=== PATIENT | male | born 1950 | race Caucasian/White ===

== ENCOUNTER 2018-10-31 20:24 | Emergency (ER) | payer OTHER ==
[2018-10-31 21:35] LABS: Urine Bilirubin NEGATIVE (NEG); Urine Color RED; Urine Glucose NEGATIVE (NEG); Urine Protein 3+ (NEG); Urine Specific Gravity 1.015 (1.005-1.030); Urine Urobilinogen 0.2 mg/dL (0.2-1.0); Urine pH 6.5 (5.0-7.0)
[2018-10-31 21:37] LABS: Urine Appearance TURBID; Urine Blood 4+ (NEG)
[2018-10-31 21:38] LABS: Urine Microscopic Reflex ORDER UMIC
[2018-10-31 21:45] LABS: Urine Bacteria <20 /HPF (NONE SEEN); Urine Culture Reflex Order REFLEXED; Urine RBC >50 /HPF (NONE SEEN)
[2018-10-31 22:48] LABS: Absolute Lymphocytes (CBC) 0.8 K/uL (0.7-4.9); Absolute Monocytes 0.8 K/uL (0.1-1.3); Absolute Neutrophil 9.8 K/uL (1.8-8.0); Basophils % 0.3 % (0-1.3); Eosinophils % 0.5 % (0-4.4); Hematocrit 37.1 % (39.6-49.0); Lymphocytes % 7.2 % (15.3-44.8); MCH 32.4 pg (27.0-35.0); MCV 95.7 fL (80-100); MPV 7.9 fL (7.6-11.3); RBC Red Blood Cell Count 3.88 M/uL (4.33-5.43)
[2018-10-31 23:25] LABS: BUN Blood Urea Nitrogen 14 mg/dL (7-18); Bicarbonate 27 mmol/L (21-32); Glucose Level 108 mg/dL (74-106); Potassium 3.7 mmol/L (3.5-5.1); Sodium Level 129 mmol/L (136-145)
--- NOTE | 2018-11-01 00:19 | ER ---
Nurse's Notes [facility] Name: Bennie Thompson Age: 67 yrs Sex: Male : 1950 Arrival Date: 10/31/2018 Time: 20:25 Bed 14 Private MD: Diagnosis: Hematuria, unspecified;Cystitis, unspecified Presentation: 10/31 21:12 Presenting complaint: Patient states: burning with urination and blood in urine since aa1 this afternoon. Denies fever. Transition of care: patient was not received from another setting of care. Onset of symptoms was October 31, 2018. Risk Assessment: Do you want to hurt yourself or someone else? Patient reports no desire to harm self or others. Initial Sepsis Screen: Does the patient meet any 2 criteria? No. Patient's initial sepsis screen is negative. Does the patient have a suspected source of infection? Yes: Dysuria/Frequency/Urgency/UTI. Care prior to arrival: None. 21:12 Method Of Arrival: Ambulatory aa1 21:12 Acuity: MISTY 3 aa1 Triage Assessment: 21:13 General: Appears in no apparent distress. comfortable, Behavior is calm, cooperative, aa1 appropriate for age. Historical: - Allergies: 21:13 No Known Allergies; aa1 - Home Meds: 21:13 Metformin Oral [Active]; Lisinopril Oral [Active]; aa1 - PMHx: 21:13 Diabetes - NIDDM; aa1 - PSHx: 21:13 None; aa1 - Immunization history:: Flu vaccine is up to date. - Social history:: Smoking status: Patient/guardian denies using tobacco. - Ebola Screening: : No symptoms or risks identified at this time. - Family history:: not pertinent. - Hospitalizations: : No recent hospitalization is reported. Screenin:40 Abuse screen: Denies threats or abuse. Nutritional screening: No deficits noted. jb4 Tuberculosis screening: No symptoms or risk factors identified. Fall Risk None identified. Assessment: 22:30 Reassessment: Pt is in CT. jb4 22:40 General: Appears in no apparent distress. comfortable, Behavior is calm, cooperative, jb4 appropriate for age. Pain: Denies pain. Neuro: Level of Consciousness is awake, alert, obeys commands, Oriented to person, place, time, situation. Cardiovascular: Patient's skin is warm and dry. Respiratory: Airway is patent Respiratory effort is even, unlabored, Respiratory pattern is regular, symmetrical. GI: No signs and/or symptoms were reported involving the gastrointestinal system. : Reports pain with urination, hematuria. EENT: No signs and/or symptoms were reported regarding the EENT system. Derm: Skin is intact, Skin is pink, warm \T\ dry. 22:40 Musculoskeletal: Circulation, motion, and sensation intact. jb4 11/01 00:00 Reassessment: Patient appears in no apparent distress at this time. Patient and/or jb4 family updated on plan of care and expected duration. Pain level reassessed. Patient is alert, oriented x 3, equal unlabored respirations, skin warm/dry/pink. 01:00 Reassessment: Patient appears in no apparent distress at this time. Patient and/or jb4 family updated on plan of care and expected duration. Pain level reassessed. Patient is alert, oriented x 3, equal unlabored respirations, skin warm/dry/pink. 02:00 Reassessment: Patient appears in no apparent distress at this time. Patient and/or jb4 family updated on plan of care and expected duration. Pain level reassessed. Patient is alert, oriented x 3, equal unlabored respirations, skin warm/dry/pink. Vital Signs: 10/31 21:13 BP 149 / 71; Pulse 69; Resp 18; Temp 97.9; Pulse Ox 100% on R/A; Weight 74.84 kg; aa1 Height 6 ft. 2 in. (187.96 cm); Pain 0/10; 22:45 BP 131 / 65; Pulse 65; Resp 16; Pulse Ox 100% on R/A; jb4 23:45 BP 120 / 67; Pulse 72; Resp 16; Pulse Ox 100% ; jb4 11/01 00:45 BP 123 / 66; Pulse 70; Resp 16; Pulse Ox 100% on R/A; jb4 01:30 BP 129 / 61; Pulse 71; Resp 16; Pulse Ox 98% on R/A; jb4 10/31 21:13 Body Mass Index 21.18 (74.84 kg, 187.96 cm) aa1 ED Course: 10/31 20:25 Patient arrived in ED. ds1 21:12 Triage completed. aa1 21:13 Arm band placed on left wrist. Patient placed in waiting room, Patient notified of wait aa1 time. Urine obtained. 22:06 Trev Ahmadi MD is Attending Physician. rn 22:22 Qasim Hays, RN is Primary Nurse. jb4 22:32 Radiology exam delayed due to pt is getting blood work done at this time. vm2 22:35 Patient moved to [place] via wheelchair. vm2 22:36 Initial lab(s) drawn, by me, sent to lab. Inserted saline lock: 18 gauge in right mb4 antecubital area, using aseptic technique. Blood collected. 22:42 CT completed. Patient tolerated procedure well. Patient moved back from [place]. ut 22:45 Patient has correct armband on for positive identification. Placed in gown. Bed in low jb4 position. Call light in reach. Side rails up X 1. Pulse ox on. NIBP on. 22:48 CT Stone Protocol In Process Unspecified. EDMS 12 01:00 Warm blanket given. Pillow given. jb4 02:17 No provider procedures requiring assistance completed. IV discontinued, intact, jb4 bleeding controlled. Administered Medications: 00:30 Drug: Cipro 400 mg Volume: 200 ml; Route: IVPB; Infused Over: 60 mins; Site: right jb4 antecubital; 01:30 Follow up: Response: No adverse reaction; IV Status: Completed infusion jb4 Outcome: 00:18 Discharge ordered by . rn 02:17 Discharged to home ambulatory, with significant other. jb4 02:17 Condition: stable 02:17 Discharge instructions given to patient, rehab services aide, Instructed on discharge instructions, follow up and referral plans. medication usage, Demonstrated understanding of instructions, follow-up care, medications, Prescriptions given X 1. 02:17 Patient left the ED. jb4 Signatures: Dispatcher [employer] EDPR Alina Machado, RN RN aa1 Cielo Solo ds1 Trev Ahmadi MD MD rn Bryson, James, RN RN jb4 Rafa Petit [facility] Keeley Delgadillo [facility] Corrections: (The following items were deleted from the chart) 10/31 22:32 22:23 Patient moved to [place] vm2 vm2
--- NOTE | 2018-11-01 00:19 | EDPHYS ---
Physician Documentation [facility] Name: Bennie Thompson Age: 67 yrs Sex: Male : 1950 Arrival Date: 10/31/2018 Time: 20:25 Bed 14 Private MD: ED Physician Trev Ahmadi HPI: 10/31 23:25 This 67 yrs old Male presents to ER via Ambulatory with complaints of rn hematuria. 23:25 The patient presents with urinary symptoms. Onset: The symptoms/episode began/occurred rn today. Modifying factors: The symptoms are alleviated by nothing, the symptoms are aggravated by urinating. Severity of symptoms: At their worst the symptoms were mild, in the emergency department the symptoms are unchanged. The patient has not experienced similar symptoms in the past. Reports hematuria, + increased frequency, no pain, no vomiting, has had a urine infection before, + clots, no fever. Feels like emptying. . Historical: - Allergies: 21:13 No Known Allergies; aa1 - Home Meds: 21:13 Metformin Oral [Active]; Lisinopril Oral [Active]; aa1 - PMHx: 21:13 Diabetes - NIDDM; aa1 - PSHx: 21:13 None; aa1 - Immunization history:: Flu vaccine is up to date. - Social history:: Smoking status: Patient/guardian denies using tobacco. - Ebola Screening: : No symptoms or risks identified at this time. - Family history:: not pertinent. - Hospitalizations: : No recent hospitalization is reported. ROS: 23:25 Constitutional: Negative for fever, chills, and weight loss, Eyes: Negative for injury, rn pain, redness, and discharge, Neck: Negative for injury, pain, and swelling, Cardiovascular: Negative for chest pain, palpitations, and edema, Respiratory: Negative for shortness of breath, cough, wheezing, and pleuritic chest pain, Abdomen/GI: Negative for abdominal pain, nausea, vomiting, diarrhea, and constipation, : + hematuria MS/Extremity: Negative for injury and deformity, Skin: Negative for injury, rash, and discoloration, Neuro: Negative for headache, weakness, numbness, tingling, and seizure. Exam: 23:25 Constitutional: This is a well developed, well nourished patient who is awake, alert, rn and in no acute distress. Eyes: Pupils equal round and reactive to light, extra-ocular motions intact ENT: MMM Abdomen/GI: soft, non-tender Back: No spinal tenderness. No costovertebral tenderness. Full range of motion. Skin: Warm, dry with normal turgor. Normal color with no rashes, no lesions, and no evidence of cellulitis. MS/ Extremity: Pulses equal, no cyanosis. Neurovascular intact. Full, normal range of motion. Equal circumference. Neuro: Awake and alert, GCS 15, oriented to person, place, time, and situation. Cranial nerves II-XII grossly intact. Motor strength 5/5 in all extremities. Sensory grossly intact. Cerebellar exam normal. Normal gait. Vital Signs: 21:13 BP 149 / 71; Pulse 69; Resp 18; Temp 97.9; Pulse Ox 100% on R/A; Weight 74.84 kg; aa1 Height 6 ft. 2 in. (187.96 cm); Pain 0/10; 22:45 BP 131 / 65; Pulse 65; Resp 16; Pulse Ox 100% on R/A; jb4 23:45 BP 120 / 67; Pulse 72; Resp 16; Pulse Ox 100% ; jb4 11/01 00:45 BP 123 / 66; Pulse 70; Resp 16; Pulse Ox 100% on R/A; jb4 01:30 BP 129 / 61; Pulse 71; Resp 16; Pulse Ox 98% on R/A; jb4 10/31 21:13 Body Mass Index 21.18 (74.84 kg, 187.96 cm) aa1 MDM: 10/31 22:06 Patient medically screened. rn 11/01 00:16 Differential diagnosis: UTI, prostatitis, urethritis. Data reviewed: vital signs, rn nurses notes, lab test result(s), radiologic studies, CT scan, and as a result, I will discharge patient. Counseling: I had a detailed discussion with the patient and/or guardian regarding: the historical points, exam findings, and any diagnostic results supporting the discharge/admit diagnosis, lab results, radiology results, the need for outpatient follow up, to return to the emergency department if symptoms worsen or persist or if there are any questions or concerns that arise at home. Response to treatment: the patient's symptoms have mildly improved after treatment, and as a result, I will discharge patient. Special discussion: I discussed with the patient/guardian in detail that at this point there is no indication for admission to the hospital. It is understood, however, that if the symptoms persist or worsen the patient needs to return immediately for re-evaluation. Based on the history and exam findings, there is no indication for further emergent testing or inpatient evaluation. I discussed with the patient/guardian the need to see the urologist for further evaluation of the symptoms. ED course: Pt without signs of retention, most likely cystitis given thickening of bladder on CT scan, + mass most likely clot, after long discussion of risks/benefits of irrigation, decision made for irrigation, gave CT results print out o patient for his personal urologist in [place], and urged to f/u for cystoscopy. . 10/31 21:16 Order name: UA; Complete Time: 21:47 snw 10/31 21:40 Order name: Urine Microscopic Only; Complete Time: 21:47 EDMS 10/31 22:19 Order name: CBC with Diff; Complete Time: 23:21 rn 10/31 22:19 Order name: Basic Metabolic Panel; Complete Time: 00:07 rn 10/31 22:19 Order name: IV Start; Complete Time: 22:35 rn 10/31 22:19 Order name: CT Stone Protocol rn 11/01 00:07 Order name: Bladder Irrigation; Complete Time: 01:01 rn Administered Medications: 00:30 Drug: Cipro 400 mg Volume: 200 ml; Route: IVPB; Infused Over: 60 mins; Site: right jb4 antecubital; 01:30 Follow up: Response: No adverse reaction; IV Status: Completed infusion jb4 Disposition: 11/01/18 00:18 Discharged to Home. Impression: Hematuria, unspecified, Cystitis, unspecified. - Condition is Stable. - Discharge Instructions: Hematuria, Adult, Urinary Tract Infection, Adult. - Prescriptions for Cipro 500 mg Oral Tablet - take 1 tablet by ORAL route every 12 hours for 10 days; 20 tablet. - Medication Reconciliation Form, Thank You Letter, Antibiotic Education, Prescription Opioid Use form. - Follow up: Private Physician; When: As needed; Reason: Recheck today's complaints, Re-evaluation by your physician. - Problem is new. - Symptoms have improved. Signatures: Dispatcher [facility] EDND Alina Machado RN RN aa1 Sudha Boone, TERMITE TREATER HELPER-C TERMITE TREATER HELPER-Csnw Trev Ahmadi MD MD rn Bryson, James, RN RN jb4 Corrections: (The following items were deleted from the chart) 10/31 21:16 20:35 Urine Dipstick-Ancillary ordered. snw snw 11/01 02:17 00:18 11/01/2018 00:18 Discharged to Home. Impression: Hematuria, unspecified; jb4 Cystitis, unspecified. Condition is Stable. Forms are Medication Reconciliation Form, Thank You Letter, Antibiotic Education, Prescription Opioid Use. Follow up: Private Physician; When: As needed; Reason: Recheck today's complaints, Re-evaluation by your physician. Problem is new. Symptoms have improved. rn
[2018-11-01] MEDS ORDERED: NACL 0.9% IRR SOLN 2,000 ML IRR ONE (00:23)
[2018-11-01] MEDS ORDERED: CIPROFLOXACIN 400mg IV 400 MG/200 ML BAG IV ONE (00:31)
--- NOTE | 2018-11-01 06:25 | RAD REPORT ---
EXAM DESCRIPTION: CT - Stone Protocol - 11/01/2018 3:58 am CLINICAL HISTORY: Dysuria, hematuria A preliminary report was provided at the time of the study and reviewed prior to final report. COMPARISON: CT imaging 2010 TECHNIQUE: Axial 5 mm thick images were obtained without oral or IV contrast. The [id number] span s the entirety of the system partially obscuring uppermost abdomen and lung bases. All CT scans are performed using dose optimization technique as appropriate and may include automated exposure control or mA/KV adjustment according to patient size. FINDINGS: No hydronephrosis is present and no obstructing ureteral calculi. No suspicious renal mass es. Isodense masses and pyelonephritis are not excluded on a stone protocol CT scan. Urinary bladder is partially filled. There is circumferential irregular wall thickening throughout the bladder greate r than simple contraction artifact. Additionally, there is hyperdense material along the posterior wa ll of the bladder. This is nonspecific and not fully evaluated in the absence of IV contrast and intr aluminal contrast. Hemorrhagic material from cystitis is certainly possible. A bladder malignant mass also possible. Direct visualization will be needed. No significant adrenal finding. Imaged portions of the liver, spleen and pancreas show no suspicious findings on non-contrast imaging . No gallbladder or biliary tree abnormality identified. No suspicious bowel findings. No hernia, mass or bulky lymphadenopathy noted. No free air, free fluid or inflammatory stranding. No significant bony abnormality. IMPRESSION: Abnormal urinary bladder showing irregular thickened circumferential vickers and mass or i ntraluminal filling defect near the posterior wall. Intraluminal hemorrhagic material from cystitis would be possible as well as a bladder mass. Direct v isualization is recommended. No hydronephrosis, obstructing calculus or acute renal parenchymal process. Isodense masses and pyelonephritis are not excluded on stone protocol technique.
== END 2018-11-01 02:17 | disposition home or self-care (01) ==
LOC: ER 20:24
DX: N30.90 Cystitis, unspecified without hematuria (principal); E11.9 Type 2 diabetes mellitus without complications
CPT/HCPCS: 36415; 74176; 76377; 80048; 85025; 96365; 99284; J0744; 81003; 81015

== ENCOUNTER 2019-04-09 10:29 | Emergency (ER) | payer OTHER ==
--- OUTSIDE RECORDS SUMMARY | 2019-04-09 10:33 | XMS REPORT ---
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
--- OUTSIDE RECORDS SUMMARY | 2019-04-09 10:33 | XMS REPORT ---
:1950 Author Organization [employer] Care Team Providers Name Role Phone Katherine, Jacky Provider Role Unavailable Allergies, Adverse Reactions, Alerts Substance Reaction Event Type N.K.D.A. Info Not Available Non Drug Allergy Encounters Encounter Location Date poss UTI [facility] Dec 18, 2015 Unknown Drew Espinosa DPM February 21, 2015 Problems Problem Type Condition ICD-9 Code Onset Dates Condition Status Assessment UTI (urinary tract infection) N39.0 Active Medications Medication Code System Code Instructions Start End Status Dosage Date Date Multivitamins MEDISPAN 69493-98 Orally Active Unknown 041 Glucosamine MEDISPAN 15045-39 500 MG Orally Active 2 capsule 17-12 once a day with a meal Metformin HCl MEDISPAN 32458-30 1000 mg Orally Active 1 tablet 14-01 Twice a day with meals True Care Test MEDISPAN 20273-06 0 In Vitro once April 15, Active as directed Strip Pack 17-50 a day 2014 Fish Oil MEDISPAN 53525-26 1000 MG Orally Active 1 capsule 71-40 Once a day Flax Seed Oil MEDISPAN 99448-78 1000 MG Orally Active Unknown 131 lipitor Unknown 0 Oral Active 1 tab Cipro MEDISPAN 02404-45 500 MG Orally Dec 18, Dec 28, Active 1 tablet 67-01 Twice a day 2015 2015 Social History Social History Element Qualifiers Date Reported Tobacco Use: . Are you a: nonsmoker Dec 18, 2015 Vital Signs Date/Time: Dec 18, 2015 Weight 172 lbs Height 74 in Cardiac Monitoring Heart Rate 80 /min Blood Pressure Diastolic 70 mm Hg Blood Pressure Systolic 124 mm Hg Results 6049 CULTURE, URINE Summary Purpose [employer]ClinicalWorks Submission
--- OUTSIDE RECORDS SUMMARY | 2019-04-09 10:33 | XMS REPORT | Continuity of Care Document ---
:1950 Author Organization Interface Problems Problem Status Onset Classification Date Comments Source Date Reported Elevated lipids Active Problem 03/09/2018 [facility] Essential Active Problem 03/09/2018 [facility] hypertension Practice Ass[facility] Leukopenia Active Problem 03/09/2018 [facility] Type 2 diabetes Active Problem 03/09/2018 [facility] mellitus without Practice complications Assoc Trauma, traumatism Active Problem 02/22/2015 Drew Espinosa Dystrophia unguium Active Problem 02/22/2015 [facility] Espin[facility] UTI Active Diagnosis 03/04/2016 [facility] DM Active Diagnosis 06/03/2016 [facility] Preventative Active Diagnosis 02/25/2016 [facility] health care [facility] Hypertension Active Diagnosis 06/03/2016 [facility] Hyperlipidemia Active Diagnosis 02/25/2016 [facility] Medications Medication Details Route Status Patient Ordering Order Source Instructions Provider Date Lipitor 1 tablet Orally Active 20 MG Orally [place] 03/09/ [place] [facility] Once a day 2016 [facility] Lipitor 1 tablet Orally Active 20 mg Orally [place] 06/02/ [place] [facility] Once a day 2016 [facility] Clobetasol 1 application Externally Active 0.05 % Katherine 03/25/ [place] [facility] Propionate to affected Externally 2016 Practice area Twice a day Assoc Cipro 1 tablet Orally Active 500 MG Orally [place] 02/09/ [place] [facility] Twice a day 2016 [facility] Lisinopril 1 tablet Orally Active 10 mg Orally [place] 01/19/ [place] [facility] Once a day 2016 [facility] Lisinopril 1 tablet Orally Active 10 MG Orally [place] 01/19/ [place] [facility] Once a day 2016 [facility] Cipro 1 tablet Orally Active 500 MG Orally Katherine 12/18/ [place] [facility] Twice a day 2015 [facility] True Care Test as directed In Vitro Active 0 In Vitro Katherine 04/15/ [place] [facility] Strip Pack once a day 2014 [facility] Lamisil 1 tab(s) orally Active 250 mg orally [place] 02/21/ Drew once a day 2014 [place] Metformin HCl 1 tablet with Orally Active 1000 mg [place] [facility] meals Orally Twice Practice a day Assoc Multivitamins Unknown Orally Active Orally [place] [facility] Glucosamine 2 capsule Orally Active 500 MG Orally [place] [facility] with a meal once a day [facility] Metformin HCl 1 tablet with Orally Active 1000 MG [place] [facility] meals Orally Twice Practice a day Assoc Fish Oil 1 capsule Orally Active 1000 MG [place] [facility] Orally Once a Practice day Assoc Flax Seed Oil Unknown Orally Active 1000 MG [place] [facility] Orally [facility] lipitor 1 tab Oral Active Oral [place] [facility] Allergies, Adverse Reactions, Alerts Substance Category Reaction Severity Reaction Status Date Comments Source type Reported N.K.D.A. Adverse Info Not Adverse Active [place] [facility] Reaction Available Reaction 6 [facility] Immunizations Immunization Date Given Site Status Last Comments Source Updated Influenza 09/01/2016 completed [facility] tetanus 03/02/2016 completed [place] [facility] Results Order Results Value Reference Date Interpretation Comments Source Name Range Vital Signs Vital Sign Value Date Comments Source Weight 169 09/01/2016 [facility] Height 74 09/01/2016 [facility] Heart Rate 76 09/01/2016 [facility] Diastolic (mm Hg) 72 09/01/2016 [facility] Systolic (mm Hg) 122 09/01/2016 [facility] Weight 174 06/17/2016 [place] [facility] Height 74 06/17/2016 [facility] Heart Rate 76 06/17/2016 [facility] Diastolic (mm Hg) 80 06/17/2016 [place] [facility] Systolic (mm Hg) 140 06/17/2016 [facility] Weight 171 06/01/2016 [facility] Height 74 06/01/2016 [facility] Heart Rate 72 06/01/2016 [facility] Diastolic (mm Hg) 74 06/01/2016 [facility] Systolic (mm Hg) 122 06/01/2016 [facility] Weight 168 03/02/2016 [facility] Height 74 03/02/2016 [facility] Heart Rate 72 03/02/2016 [facility] Diastolic (mm Hg) 72 03/02/2016 [facility] Systolic (mm Hg) 120 03/02/2016 [place] [facility] Weight 168 02/10/2016 [place] [facility] Height 74 02/10/2016 [place] [facility] Heart Rate 72 02/10/2016 [place] [facility] Diastolic (mm Hg) 72 02/10/2016 [place] [facility] Systolic (mm Hg) 114 02/10/2016 [place] [facility] Weight 169 01/20/2016 [place] [facility] Height 74 01/20/2016 [place] [facility] Heart Rate 72 01/20/2016 [place] [facility] Diastolic (mm Hg) 76 01/20/2016 [place] [facility] Systolic (mm Hg) 140 01/20/2016 [place] [facility] Weight 169 01/06/2016 [place] [facility] Height 74 01/06/2016 [place] [facility] Heart Rate 72 01/06/2016 [place] [facility] Diastolic (mm Hg) 76 01/06/2016 [place] [facility] Systolic (mm Hg) 118 01/06/2016 [place] [facility] Weight 172 12/18/2015 [place] [facility] Height 74 12/18/2015 [place] [facility] Heart Rate 80 12/18/2015 [place] [facility] Diastolic (mm Hg) 70 12/18/2015 [place] [facility] Systolic (mm Hg) 124 12/18/2015 [place] [facility] Encounters Location Location Encounter Encounter Reason Attending ADM DC Status Source Details Type Number For Provider Date Date Visit Drew Unknown [id number] 02/21 02/21 [facility] D[id number] [id number] Drew Unknown [id number] 02/21 02/21 [facility] HYACINTH Espinosa [id number]-8474-d /2014 Practice [id number] Assoc [id number] Drew Unknown [id number] 02/21 02/21 [place] [facility] HYACINTH Espinosa 9p8-4w56-n /2014 Practice [id number]-97ad9a Assoc [id number] Drew Unknown [id number] 02/21 02/21 [place] [facility] HYACINTH Espinosa 636-4778-b /2014 Practice aa1-f26f7b Assoc [id number] Drew Unknown [id number] 02/21 02/21 [place] [facility] [place],DPM l7x-343b-q /2014 Practice [id number] Assoc 952de6 Drew Unknown [id number] 02/21 02/21 [place] [facility] [place],DPM 790-464c- Practice [id number]-x338v5 Assoc [id number] Drew Unknown [id number] 02/21 02/21 [place] [facility] [place],DPM 674-41ef-9 /2014 Practice [id number] Assoc b279b5 Drew Unknown [id number] 02/21 02/21 [place] [facility] [place],DPM af6-4ccd- Practice [id number]-dffc41 Assoc 49bf95 Drew Unknown [id number] 02/21 02/21 [place] [facility] [place],DPM 224-49af-b /2014 Practice [id number]-oy84nv Assoc 039a3c Drew Unknown [id number] 02/21 02/21 [place] [facility] [place],DPM eb5-4fc0-b /2014 Practice [id number] Assoc [id number] Drew Unknown [id number] 02/21 02/21 [place] [facility] [place],DPM 332-4152- /2014 Practice [id number] Assoc [id number] Drew Unknown [id number] 02/21 02/21 [place] [facility] [place],DPM o3z-779n-9 /2014 Practice [id number] Assoc 40fda1 Drew Unknown [id number] 02/21 02/21 [place] [facility] [place],DPM 78c-4839-9 /2014 Practice 38b-be5d9e Assoc 7dc5fe Drew Unknown [id number] 02/21 02/21 [place] [facility] [place],DPM 53a-452b-a /2014 Practice 9r2-794fq6 Assoc 0d47f3 Drew Unknown [id number] 02/21 02/21 [place] [facility] [place],DPM o60-5699-6 /2014 Practice 452-88ea87 Assoc 013b84 Drew Unknown [id number] 02/21 02/21 [place] [facility]ab EspinosaDPBulmaro 376-4887-8 /2014 Practice 2cc-ce5c8d Assoc e5fd5c Drew Unknown [id number] 02/21 02/21 [place] Shahab EspinosaDPBulmaro 215-40f2-a /2014 Practice 96d-d9c7dd Assoc u4o546 Drew Unknown [id number] 02/21 02/21 [place] Shahab EspinosaDPM 31b-43fd-a /2014 Practice [id number] Assoc 4fcb26 Drew Unknown [id number] 02/21 02/21 [place] [facility] FranciscaDPM 449-4978-a /2014 Practice 40a-79477y Assoc p85942 [place] [facility] U[facility] [id number]-[id number] 12/18 12/18 [place] [facility] 383-43eb-9 /2015 [facility] [id number] Assoc ccdaaf [place] [facility] UTI 81i0lil2-4 12/18 12/18 [place] [facility] 1d0-6831-2 /2015 [facility] 7t5-5e5os5 Assoc f436a2 [place] [facility] UTI [id number] 12/18 12/18 [place] [facility] bc5-447b-9 /2015 [facility] 7df-8ur511 Assoc u5388r [place] [facility] UTI [id number] 12/18 12/18 [place] [facility] aed-4409-8 /2015 [facility] 861-8f6b88 Assoc 61bf2b [place] [facility] UTI [id number] 12/18 12/18 [place] [facility] 912-4dfc-a /2015 [facility] ff7-e5abc7 Assoc 01fead [place] [facility] UTI 50p84d8s-8 12/18 12/18 [place] [facility] 19a-41b5-8 /2015 [facility] 9u4-89hr0f Assoc 8al050 [place] [facility] UTI [id number] 12/18 12/18 [place] [facility] 390-4e26-9 /2015 [facility] 18a-8867cc Assoc 39381v [place] [facility] UTI 89kf51l4-0 12/18 12/18 [place] [facility] c21-75bk-z /2015 [facility] [id number] Assoc 9672ed [place] [facility] UTI [id number] 12/18 12/18 [place] [facility] 0ac-40eb-9 /2015 [facility] eb1-d5f6e2 Assoc a28d0c [place] [facility] UTI [id number]-0 12/18 12/18 [place] [facility] 38f-4bfa-8 /2015 [facility] 757-da8f14 Assoc 5f4edf [place] [facility] UTI [id number] 12/18 12/18 [place] [facility] k1b-77l5-q /2015 [facility] 046-f1f3cc Assoc xm169b [place] [facility] UTI 492j7lc6-p 12/18 12/18 [place] [facility] 386-45fd-b /2015 [facility] [id number] Assoc df6d40 [place] [facility] UTI 6gc0utri-d 12/18 12/18 [place] [facility] e1j-8y39-3 /2015 [facility] c65-i275pq Assoc db9d2d [place] [facility] UTI 57ez3924-y 12/18 12/18 [place] [facility] a4s-6y38-r /2015 [facility] 502-f04e65 Assoc bce2df [place] [facility] UTI 37v08o2r-k 12/18 12/18 [place] [facility] w6m-197t-1 /2015 [facility] 550-edc2c3 Assoc b85836 [place] [facility] UTI [id number]-y 12/18 12/18 [place] [facility] 246-40ce-9 /2015 [facility] 8m5-9319p4 Assoc c2acd4 [place] [facility] [id number] 12/18 12/18 [place] [facility] 84c-4b40-b /2015 [facility] 7af-3eeff6 Assoc 9489d8 [place] [facility] UTI [id number]-w 12/18 12/18 [place] [facility] 9i1-5a1v-9 /2015 [facility] bd5-96fc02 Assoc 2fdc5f [place] [facility] [id number] 01/06 01/06 [place] [facility] 6r7-709u-7 /2015 [facility] 989-3a2d61 Assoc 9c08a9 [place] [facility] e091j452-s 01/06 01/06 [place] [facility] s6z-9hv9-y /2015 [facility] 713-b63c19 Assoc 068341 [place] [facility] [id number] 01/06 01/06 [place] [facility] 565-43f5-9 /2015 [facility] 706-c8714m Assoc 594f1b [place] [facility] [id number]-e 01/06 01/06 [place] [facility] q9f-2nhp-v /2015 [facility] q4v-qh5ela [facility]oc 7550b9 [place] [facility] [id number] 01/06 01/06 [place] [facility] 851-4ceb-a /2015 [facility] faa-81610r Assoc ka6060 [place] [facility] 2t3u5gqq-f 01/06 01/06 [place] [facility] 58b-416a-8 /2015 [facility] 61c-7b9835 Assoc 6f70a6 [place] [facility] 76i305e8-i 01/06 01/06 [place] [facility] 88d-4f82-8 /2015 [facility] 5y0-268801 Assoc 045bf6 [place] [facility] 322s3d29-a 01/06 01/06 [place] [facility] 01d-44eb-b /2015 [facility] fd5-abca2b Assoc fc2d85 [place] [facility] cvp7b1zl-l 01/06 01/06 [place] [facility] 973-4fcd-a /2015 [facility] h23-9isr0n Assoc ed21f4 [place] [facility] 5n7524o6-w 01/06 01/06 [place] [facility] 7af-431c-9 /2015 [facility] ea2-04574r Assoc 3c084q [place] [facility] j9tda82y-i 01/06 01/06 [place] [facility] 7ad-4e7b-9 /2015 [facility] 21d-7a9dfa Assoc ea7f73 [place] [facility] 2bpy374m-0 01/06 01/06 [place] [facility] ed9-4cea-a /2015 [facility] cf8-8c6cda Assoc 5306eb [place] [facility] 887z3h8l-y 01/06 01/06 [place] [facility] 00f-4d8a-a /2015 [facility] n87-nmx293 Assoc 970821 [place] [facility] [id number] 01/06 01/06 [place] [facility] 906-4819-b /2015 [facility] cb2-f3c0de Assoc 5r6250 [place] [facility] u71toi93-9 01/06 01/06 [place] [facility] 222-4ff8-8 /2015 [facility] 0j0-ay33zi Assoc 5e1fba [place] [facility] gi5n4080-5 01/06 01/06 [place] [facility] db8-47da-a /2015 [facility] 91f-146020 Assoc b6cb15 [place] [facility] l3k83cg5-5 01/06 01/06 [place] [facility] 6w6-5z40-n /2015 [facility] 5c2-8723x8 Assoc 47746q [place] [facility] 2wk/annual 2q1r3xv9-3 01/19 01/19 [place] [facility] 141-4690-a /2015 [facility] 1cf-bb21ab Assoc 02cc78 [place] [facility] 2wk/annual 75033rz1-0 01/19 01/19 [place] [facility] 59c-455e-9 /2015 [facility] 37c-3a0ced Assoc c8da05 [place] [facility] 2wk/annual 13ab3p69-0 01/19 01/19 [place] [facility] 4q4-75zw-n /2015 [facility] 4p0-d3027q Assoc 59914b [place] [facility] 2wk/annual x4ze2m13-4 01/19 01/19 [place] [facility] g76-208w-5 /2015 [facility] 80e-c49e3f Assoc o37393 [place] [facility] 2wk/annual q64o87u7-7 01/19 01/19 [place] [facility] 9ee-4809-8 /2015 [facility] 156-94i470 Assoc 96566d [place] [facility] 2wk/annual 537t2700-4 01/19 01/19 [place] [facility] x2k-4n78-k /2015 [facility] 5k7-489zs8 Assoc 237739 [place] [facility] 2wk/annual [id number] 01/19 01/19 [facility] 03b-466a-8 /2015 [facility] bdb-9r975y Assoc e4s152 [place] [facility] 2wk/annual j70y6rh0-u 01/19 01/19 [facility] j98-412g-7 /2015 [facility] j01-u0g9xa Assoc b4b86c [place] [facility] 2wk/annual z600a7s7-e 01/19 01/19 [facility] 237-4f9c-8 /2015 [facility] faa-8474e7 Assoc 3vo905 [place] [facility] 2wk/annual 77738l7y-7 01/19 01/19 [place] [facility] 7r7-5ff7-0 /2015 [facility] 0de-m4i191 Assoc 30ae6c [place] [facility] 2wk/annual 7r6h5dk9-0 01/19 01/19 [facility] 3m1-45i6-9 /2015 [facility] [id number] Assoc yi8611 [place] [facility] 2wk/annual 926w97ug-h 01/19 01/19 [facility] 133-42a6-9 /2015 [facility] 3z3-89b8bt Assoc aw9335 [place] [facility] 2wk/annual opr19096-n 01/19 01/19 [place] [facility] c9c-2el3-8 /2015 [facility] 056-edf74a Assoc 622ed3 [place] [facility] 2wk/annual tn8n0026-7 01/19 01/19 [facility] p2t-4nvd-y /2015 [facility] 0l8-lo2p80 Assoc fe6f32 [place] [facility] 2wk/annual 80p9a769-7 01/19 01/19 [facility] 13c-47f3-9 /2015 [facility] 072-737fc8 Assoc c6f8c7 [place] [facility] 2wk/annual 0n992oz0-i 01/19 01/19 [place] [facility] 964-4074-8 /2015 [facility] h7v-dph496 Assoc 49f205 [place] [facility] 3w 79ba293v-9 02/09 02/09 [facility] 101-4fe0-8 /2015 [facility] af0-8e97e1 Assoc c0add8 [place] [facility] 3w 0775u799-5 02/09 02/09 [facility] 404-4fbe-b /2015 [facility] 34e-19592p Assoc 5c7a52 [place] [facility] r3728m35-o 02/09 02/09 [facility] 449-4baa-9 /2015 [facility] 3ad-b299bf Assoc 40fd86 [place] [facility] a7eq0a07-8 02/09 02/09 [facility] f7c-3b72-d /2015 [facility] g49-p74vbj Assoc dbb7da [place] [facility] 3w [id number]-j 02/09 02/09 [facility] 584-4a4e-9 /2015 [facility] 129-008c13 Assoc 26c078 [place] [facility] 3[facility] 72xw8jf3-u 02/09 02/09 [facility] 60e-44fb-9 /2015 [facility] abf-16a1b3 Assoc 563c5b [place] [facility] 7w4x9qn5-l 02/09 02/09 [facility] 4ca-4fa5-9 /2015 [facility] 7db-f65c03 Assoc c2m590 [place] [facility] 7n3x718z-k 02/09 02/09 [facility] 21e-4116-8 /2015 [facility] 1cb-4f03bf Assoc 129a45 [place] [facility] 3[facility] 41u1894z-3 02/09 02/09 [facility] 755-424b-a /2015 [facility] 9v8-29o42a Assoc 861a36 [place] [facility] 7lr022ul-6 02/09 02/09 [facility] 3ef-4993-b /2015 [facility] 7ce-4e1de7 Assoc i5o575 [place] [facility] 5kfb1040-l 02/09 02/09 [facility] g9u-3ny5-p /2015 [facility] j60-3035oi Assoc 743a2e [place] [facility] [id number]-e 02/09 02/09 [facility] 1h2-8wa1-l /2015 [facility] melvi-18a8ec Assoc c51df9 [place] [facility] jh31j36m-6 02/09 02/09 [facility] 821-4b02-a /2015 [facility] 25a-bh0343 Assoc 18o837 [place] [facility] [id number] 02/09 02/09 [facility] 566-4fec-a /2015 [facility] i7c-o5t0wi [facility]oc bfd2ef [place] [facility] ma7584lt-7 02/09 02/09 [facility] db5-4310-a /2015 [facility] bd0-fe67d9 Assoc o5g076 [place] [facility] [id number]-[id number] 02/22 02/22 [facility] f7h-3ec4-6 /2015 [facility] 284-411d22 Assoc 413d0c [place] [facility] [id number] 02/22 02/22 [facility] 03c-4953-9 /2015 [facility] d0f-74a8tv Assoc a5c57d [place] [facility] c83hutjh-p 02/22 02/22 [facility] bf6-4983-8 /2015 [facility] 454-3c9df8 Assoc 930f36 [place] [facility] [id number] 02/22 02/22 [facility] 70e-4e61-b /2015 [facility] 5ea-7722e9 Assoc 0fa7ca [place] [facility] [id number]-[id number] 02/22 02/22 [facility] 413-4852-9 /2015 [facility] 67b-k51301 Assoc 0edfdc [place] [facility] [id number]-m 02/22 02/22 [facility] 37d-4d01-b /2015 [facility] 4k7-00k349 Assoc 836a46 [place] [facility] [id number] 02/22 02/22 [facility] 02b-4e20-8 /2015 [facility] 852-e6c2f0 Assoc 41282v [place] [facility] [id number] 02/22 02/22 [facility] 798-4f34-a /2015 [facility] 64a-52d083 Assoc 70f3c4 [place] [facility] a416z42m-[id number] 02/22 02/22 [facility] 4n2-6ktw-j /2015 [facility] m1a-0gq6lg [facility]oc aee7fb [place] [facility] [id number] 02/22 02/22 [facility] bbd-4289-a /2015 [facility] 2w4-7uuoof Assoc 432876 [place] [facility] [id number] 02/22 02/22 [facility] 9w9-82l5-0 /2015 [facility] 416-rk030b Assoc u13128 [place] [facility] [id number]-[id number] 02/22 02/22 [facility] 665-4712-9 /2015 [facility] ed7-571648 Assoc 2ffcaa [place] [facility] [id number] 02/22 02/22 [facility] 02f-472f-8 /2015 [facility] 1q6-79y086 Assoc 6e8d92 [place] [facility] [id number] 02/22 02/22 [facility] g12-1988-m /2015 [facility] df5-8y5291 Assoc 1mb612 [place] [facility] 3[facility] 71730um6-l 03/02 03/02 [facility] df0-4cd5-a /2015 [facility] 74d-d348d6 Assoc 0vt773 [place] [facility] [id number]-w 03/02 03/02 [facility] 4x6-449n-g /2015 [facility] 082-74ec7e Assoc dc8d0f [place] [facility] i40l71fy-y 03/02 03/02 [facility] 6a5-0dl8-u /2015 [facility] 1af-4c07ec Assoc 522d68 [place] [facility] [id number]-c 03/02 03/02 [facility] q99-61rd-n /2015 [facility] 5h4-44o171 Assoc 1bdc84 [place] [facility] [id number]-c 03/02 03/02 [facility] 00b-4445-a /2015 [facility] 8e6-g239y5 Assoc 621386 [place] [facility] 5r48u95s-6 03/02 03/02 [facility] 911-4b60-a /2015 [facility] 699-9913b7 Assoc ed11dd [place] [facility] f0odx305-p 03/02 03/02 [facility] 270-415c-8 /2015 [facility] eb0-uw574z Assoc 7df4ed [place] [facility] y1n879v5-l 03/02 03/02 [facility] s6r-2962-z /2015 [facility] db3-5b8dc5 Assoc 894402 [place] [facility] [id number]-n 03/02 03/02 [facility] f8i-49ml-1 /2015 [facility] d4q-wod8cs Assoc b922ec [place] [facility] [id number]-q 03/02 03/02 [facility] 1z0-2e72-o /2015 [facility] g74-522i6e Assoc 4791f8 [place] [facility] 3kfuk7w3-4 03/02 03/02 [facility] a39-76t7-4 /2015 [facility] ce3-431cef Assoc s0277g [place] [facility] cbu12j36-4 03/02 03/02 [facility] j98-3059-m /2015 [facility] a75-62t4uh Assoc 7264cc [place] [facility] oe5gc6gd-2 03/02 03/02 [facility] 634-40eb-a /2015 [facility] 250-df5f5d Assoc ba85ff [place] [facility] [id number] 03/25 03/25 [facility] u41-4h2a-4 /2015 [facility] 686-201b09 Assoc 3d6f0f [place] [facility] [id number] 03/25 03/25 [facility] m35-8266-8 /2015 [facility] 846-0c3f2a Assoc 9cbf8b [place] [facility] a35kgc67-0 03/25 03/25 [facility] 0fc-4ca3-b /2015 [facility] bff-50ef7d Assoc 67213w [place] [facility] [id number]-[id number] 03/25 03/25 [facility] 0u2-9428-5 /2015 [facility] 5ed-18a673 Assoc 6987db [place] [facility] [id number]-c 03/25 03/25 [facility] b61-0349-6 /2015 [facility] fbf-ebbc53 Assoc 5b13da [place] [facility] [id number] 03/25 03/25 [facility] c45-2177-k /2015 [facility] 8k9-w47a3e Assoc jp7088 [place] [facility] [id number]-w 03/25 03/25 [facility] 266-4488-8 /2015 [facility] ad8-aec96a Assoc a263f4 [place] [facility] [id number]-[id number] 03/25 03/25 [facility] 106-4b4c-a /2015 [facility] 0bd-8215b1 Assoc e60d84 [place] [facility] [id number] 03/25 03/25 [facility] e1g-1wek-6 /2015 [facility] 39b-2r4044 Assoc 53d4bc [place] [facility] [id number] 03/25 03/25 [facility] m43-978y-4 /2015 [facility] 9df-e0c86b Assoc b6edc6 [place] [facility] [id number]-7 03/25 03/25 [facility] 492-4143-b /2015 [facility] 7m3-c70m1w Assoc f74bb6 [place] [facility] [id number]-r 03/25 03/25 [facility] 19a-4af2-a /2015 [facility] b15-sk9a14 Assoc 77cd9b [place] [facility] [id number]-[id number] 04/28 04/28 [facility] 6ad-44be-b /2015 [facility] 7o2-0o6m15 Assoc aef83e [place] [facility] [id number] 04/28 04/28 [facility] b87-7216-7 /2015 [facility] adb-889973 Assoc a5164a [place] [facility] [id number]-p 04/28 04/28 [facility] 242-4f72-8 /2015 [facility] 28b-9c9afa Assoc cc5cd6 [place] [facility] [id number] 04/28 04/28 [facility] 048-42d7-b /2015 [facility] 084-3a37f5 Assoc 8d916z [place] [facility] [id number] 04/28 04/28 [facility] 6cc-4b6e-8 /2015 [facility] fde-e2de26 Assoc 09c3f5 [place] [facility] [id number] 04/28 04/28 [facility] 497-446d-a /2015 [facility] 548-8cac99 Assoc 99d8b4 [place] [facility] [id number] 04/28 04/28 [facility] fe3-470c-9 /2015 [facility] 6h6-lj8615 Assoc 1a0242 [place] [facility] [id number] 04/28 04/28 [facility] n9r-5en0-j /2015 [facility] cd4-f70cf6 Assoc 11d0de [place] [facility] [id number] 04/28 04/28 [facility] t0h-9381-5 /2015 [facility] 982-2mr157 Assoc 3879d5 [place] [facility] [id number]-p 04/28 04/28 [facility] 4cf-41c4-9 /2015 [facility] 9o9-824u55 Assoc 34585f [place] [facility] [id number] 04/28 04/28 [facility] r03-6h90-7 /2015 [facility] 451-6bdbde Assoc e4c3cd [place] [facility] 3m [id number]-s 06/01 06/01 [facility] 3k1-6417-5 /2015 [facility] 765-f27a78 Assoc b8bd19 [place] [facility] 3m 7k4e7i17-8 06/01 06/01 [facility] h92-205g-i /2015 [facility] 87e-2a003j Assoc ecd0c9 [place] [facility] 3m 184mh24t-6 06/01 06/01 [facility] cb7-46fa-9 /2015 [facility] fb2-0y7953 Assoc ib2484 [place] [facility] 3m [id number] 06/01 06/01 [facility] 3fb-4352-9 /2015 [facility] h7e-tvhp75 Assoc 3daee9 [place] [facility] 3m [id number] 06/01 06/01 [facility] 5cc-4529-9 /2015 [facility] bbd-791f71 Assoc 84cf2f [place] [facility] 3m [id number] 06/01 06/01 [facility] [id number] /2015 [facility] [id number] [facility] [id number] [facility] [id number] 06/01 06/01 [facility] [id number] /2015 [facility] [id number] [facility] [id number] [facility] [id number] 06/01 06/01 [facility] [id number] /2015 [facility] [id number] [facility] ac25e8 [facility] [id number] 06/01 06/01 [facility] [id number] /2015 [facility] [id number] [facility] dab67b [facility] [id number] 06/01 06/01 [facility] [id number] /2015 [facility] [id number] [facility] [id number] [facility] [id number] 06/02 06/02 [facility] [id number] /2015 [facility] [id number] [facility] [id number] [facility] [id number] 06/02 06/02 [facility] [id number] /2015 [facility] [id number] [facility] [id number] [facility] [id number] 06/02 06/02 [facility] [id number] /2015 [facility] [id number] [facility] e1ddda [facility] [id number] 06/02 06/02 [facility] [id number] /2015 [facility] [id number] [facility] fcd2cc [facility] [id number] 06/02 06/02 [facility] [id number] /2015 [facility] [id number] [facility] [id number] [facility] [id number] 06/02 06/02 [facility] [id number] /[facility] [id number] [facility] [id number] [place] [facility] [id number] 06/02 06/02 [facility] [id number] /2015 [facility] [id number] Assoc [id number] [place] [facility] [id number] 06/02 06/02 [facility] [id number] /2015 [facility] [id number] Assoc [id number] [place] [facility] [id number] 06/02 06/02 [facility] [id number] /2015 [facility] [id number] [facility]oc [id number] Lori Catalan CONSULT [id number] 06/17 06/17 [facility] [id number] /2015 [facility] [id number] Assoc [id number] Lori Catalan CONSULT [id number] 06/17 06/17 [facility] [id number] /2015 [facility] [id number] Assoc [id number] Lori Catalan CONSULT [id number] 06/17 06/17 [facility] [id number] /2015 [facility] [id number] Assoc [id number] Lori Catalan CONSULT [id number] 06/17 06/17 [facility] [id number] /2015 [facility] [id number] Assoc [id number] Lori Catalan CONSULT [id number] 06/17 06/17 [facility] [id number] /2015 [facility] [id number] Assoc [id number] Lori Catalan CONSULT [id number] 06/17 06/17 [facility] [id number] /2015 [facility] [id number] Assoc [id number] Lori Catalan CONSULT [id number] 06/17 06/17 [facility] [id number] /2015 [facility] [id number] Assoc cefe05 Lori CONSULT [id number] 06/17 06/17 [facility] [id number] /2015 [facility] [id number] Assoc [id number] [place] [facility] [id number] 08/23 08/23 [facility] [id number] /2015 [facility] [id number] Assoc [id number] [place] [facility] [id number] 08/23 08/23 [facility] [id number] /2015 [facility] [id number] Assoc [id number] [place] [facility] [id number] 08/23 08/23 [facility] [id number] /2015 [facility] [id number] Assoc [id number] [place] [facility] [id number] 08/23 08/23 [facility] [id number] /2015 [facility] [id number] [facility]oc [id number] [place] [facility] [id number] 08/23 08/23 [facility] [id number] /2015 [facility] [id number] Assoc [id number] [place] [facility] [id number] 08/23 08/23 [facility] [id number] /2015 [facility] [id number] Assoc e3ba7f [place] [facility] [id number] 08/23 08/23 [facility] [id number] /2015 [facility] [id number] Assoc [id number] [place] [facility] [id number] 09/01 09/01 [facility] [id number] /2015 [facility] [id number] Assoc gs565t [place] [facility] [id number] 09/01 09/01 [facility] [id number] /2015 [facility] [id number] Assoc [id number] [place] [facility] [id number] 09/01 09/01 [facility] [id number] /2015 [facility] [id number] Assoc [id number] [place] [facility] [id number] 09/01 09/01 [facility] [id number] /2015 [facility] [id number] Assoc [id number] [place] [facility] [id number] 09/01 09/01 [facility] [id number] /2015 [facility] [id number] Assoc [id number] [place] [facility] [id number] 09/01 09/01 [facility] [id number] /2015 [facility] [id number] Assoc [id number] [place] [facility] 3 months [id number] 09/01 09/01 [facility] f/u and [id number] /2015 [facility] flu vacc [id number] Assoc [id number] [place] [facility] 3 months [id number] 09/01 09/01 [facility] f/u and [id number] /2015 [facility] [id number] Assoc 9ceaae [place] [facility] 3 months [id number] 09/01 09/01 [facility] f/u and [id number] /2015 [facility] [id number] Assoc [id number] [place] [facility] 3 months [id number] 09/01 09/01 [facility] f/u and [id number] /2015 [facility] [id number] Assoc [id number] [place] [facility] 3 months [id number] 09/01 09/01 [facility] f/u and [id number] /2015 [facility] [id number] Assoc 5fbd8a [place] [facility] [id number] 10/12 10/12 [facility] [id number] /2015 [facility] [id number] Assoc [id number] [place] [facility] [id number] 10/12 10/12 [facility] [id number] /2015 [facility] [id number] Assoc 2a0d5d [place] [facility] [id number] 10/12 10/12 [facility] [id number] /2015 [facility] [id number] Assoc 350ebd [place] [facility] [id number] 10/12 10/12 [facility] [id number] /2015 [facility] [id number] Assoc [id number] [place] [facility] [id number] 01/14 01/14 [facility] [id number] /2016 [facility] [id number] Assoc [id number] [place] [facility] [id number] 01/14 01/14 [facility] [id number] /2016 [facility] [id number] Assoc [id number] [place] [facility] [id number] 01/14 01/14 [facility] [id number] /2016 [facility] [id number] [facility]oc [id number] [place] [facility] [id number] 01/17 01/17 [facility] [id number] /2016 [facility] [id number] Assoc [id number] [place] [facility] [id number] 01/17 01/17 [facility] [id number] /2016 [facility] [id number] Assoc [id number] [place] [facility] [id number] 01/18 01/18 [facility] [id number] /2016 [facility] [id number] Assoc 1997db Procedures Procedure Code Date Perfomer Comments Source
--- OUTSIDE RECORDS SUMMARY | 2019-04-09 10:33 | XMS REPORT ---
:1950 Author Organization eClinicalWorks Care Team Providers Name Role Phone Jacky Murphy Provider Role Unavailable Allergies No Known Allergies Problems Problem Type Condition Code Onset Dates Condition Status Problem Elevated lipids E78.5 Active Problem Essential (primary) hypertension I10 Active Problem Leukopenia D72.819 Active Problem Type 2 diabetes mellitus without E11.9 Active complications Medications Medication Code System Code Instructions Start Date End Date Status Dosage Lisinopril [facility] [id number] 10 mg Orally Once January 19, Active 1 tablet a day 2015 Results No Known Results Summary Purpose eClinicalWorks Submission
--- OUTSIDE RECORDS SUMMARY | 2019-04-09 10:33 | XMS REPORT ---
:1950 Author Organization eClinicalWorks Care Team Providers Name Role Phone Katherine, Jacky Provider Role Unavailable Allergies No Known Allergies Problems Problem Type Condition Code Onset Dates Condition Status Problem Elevated lipids E78.5 Active Problem Essential (primary) hypertension I10 Active Problem Leukopenia D72.819 Active Problem Type 2 diabetes mellitus without E11.9 Active complications Medications Medication Code Code Instructions Start End Date Status Dosage System Date Metformin HCl [facility] 67968130241 1000 mg Orally Active 1 tablet Twice a day with meals Results No Known Results Summary Purpose eClinicalWorks Submission
--- OUTSIDE RECORDS SUMMARY | 2019-04-09 10:33 | XMS REPORT ---
:1950 Author Organization eClinicalWorks Care Team Providers Name Role Phone Drew Espinosa Provider Role Unavailable Encounters Encounter Location Date Unknown Drew Espinosa DPM February 21, 2015 Problems Problem Type Condition ICD-9 Code Onset Dates Condition Status Problem Trauma, traumatism 959.9 Active Problem Dystrophia unguium 703.8 Active Medications Medication Code System Code Instructions Start Date End Date Status Dosage Lamisil MULTUM 1510 250 mg orally once a February 21 1 tab(s) day 2014 Social History Social History Element Qualifiers Date Reported caffeine yes. Dec 30, 2014 marital status . Dec 30, 2014 exercise yes. Dec 30, 2014 HIV/AIDS Denies. Dec 30, 2014 recreational drug use no. Dec 30, 2014 sexual activity yes. Dec 30, 2014 Smoking Status: . Patient is a: Never Smoker Dec 30, 2014 alcohol no. Dec 30, 2014 travel yes. Dec 30, 2014 occupation Employed. Dec 30, 2014 Summary Purpose eClinicalWorks Submission
--- OUTSIDE RECORDS SUMMARY | 2019-04-09 10:34 | XMS REPORT ---
:1950 Author Organization eClinicalWorks Care Team Providers Name Role Phone Jacky Murphy Provider Role Unavailable Allergies, Adverse Reactions, Alerts Substance Reaction Event Type N.K.D.A. Info Not Available Non Drug Allergy Encounters Encounter Location Date 3w [facility] February 10, 2016 Unknown [facility] February 23, 2016 3w [facility] March 02, 2016 Unknown [facility] March 25, 2016 poss UTI [facility] Dec 18, 2015 2w [facility] Jan 06, 2016 2wk/annual [facility] January 20, 2016 Unknown Drew Espinosa DPM February 21, 2015 Unknown [facility] April 28, 2016 3m [facility] June 01, 2016 Problems Problem Type Condition ICD-9 Code Onset Dates Condition Status Problem Elevated lipids E78.5 Active Problem Type 2 diabetes mellitus without E11.9 Active complications Problem Essential (primary) hypertension I10 Active Assessment Elevated lipids E78.5 Active Assessment DM (diabetes mellitus) E11.9 Active Assessment Hypertension I10 Active Medications Medication Code System Code Instructions Start End Status Dosage Date Date True Care Test MEDISPAN 39882-0 0 In Vitro once April 15, Active as directed Strip Pack 317-50 a day 2014 Glucosamine MEDISPAN 46095-7 500 MG Orally Active 2 capsule with 217-12 once a day a meal Lisinopril MEDISPAN 60776-9 10 MG Orally January Active 1 tablet 267-01 Once a day 2015 Clobetasol MEDISPAN 36781-3 0.05 % March 25Jun 23, Active 1 application Propionate 163-15 Externally 2015 2016 to affected Twice a day area Flax Seed Oil MEDISPAN 79904-1 1000 MG Orally Active Unknown 3131 Fish Oil MEDISPAN 57535-1 1000 MG Orally Active 1 capsule 171-40 Once a day Multivitamins MEDISPAN 06771-1 Orally Active Unknown 2040 Metformin HCl MEDISPAN 99965-7 1000 mg Orally Active 1 tablet with 214-01 Twice a day meals Social History Social History Element Qualifiers Date Reported Tobacco Use: . Are you a: nonsmoker June 01, 2016 Vital Signs Date/Time: June 01, 2016 Weight 171 lbs Height 74 in Cardiac Monitoring Heart Rate 72 /min Blood Pressure Diastolic 74 mm Hg Blood Pressure Systolic 122 mm Hg Summary Purpose eClinicalWorks Submission
--- OUTSIDE RECORDS SUMMARY | 2019-04-09 10:34 | XMS REPORT ---
:1950 Author Organization eClinicalWorks Care Team Providers Name Role Phone Jacky Murphy Provider Role Unavailable Encounters Encounter Location Date 3w [facility] February 10, 2016 Unknown [facility] February 23, 2016 3w [facility] March 02, 2016 Unknown [facility] March 25, 2016 poss UTI [facility] Dec 18, 2015 Unknown Drew Espinosa DPM February 21, 2015 2w [facility] Jan 06, 2016 2wk/annual [facility] January 20, 2016 Unknown [facility] June 02, 2016 Unknown [facility] April 28, [address] [place] [address] June 01, 2016 Problems Problem Type Condition ICD-9 Code Onset Dates Condition Status Problem Elevated lipids E78.5 Active Problem Type 2 diabetes mellitus without E11.9 Active complications Problem Essential (primary) hypertension I10 Active Medications Medication Code System Code Instructions Start Date End Date Status Dosage Lipitor MEDISPAN [address]0090 20 mg Orally Once June 02 1 tablet -23 a day 2015 Social History Social History Element Qualifiers Date Reported Tobacco Use: . Are you a: nonsmoker June 01, 2016 Summary Purpose eClinicalWorks Submission
--- OUTSIDE RECORDS SUMMARY | 2019-04-09 10:34 | XMS REPORT ---
:1950 Author Organization eClinicalWorks Care Team Providers Name Role Phone Katherine Jacky Provider Role Unavailable Allergies, Adverse Reactions, Alerts Substance Reaction Event Type N.K.D.A. Info Not Available Non Drug Allergy Encounters Encounter Location Date poss UTI [facility] Dec 18, 2015 2w [facility] Jan 06, 2016 Unknown Drew Espinosa DPM February 21, 2015 Problems Problem Type Condition ICD-9 Code Onset Dates Condition Status Assessment UTI (urinary tract infection) N39.0 Active Medications Medication Code System Code Instructions Start End Status Dosage Date Date True Care Test MEDISPAN 65571-56 0 In Vitro once April 15, Active as directed Strip Pack 17-50 a day 2014 [facility] 05381-79 1000 MG Orally Active Unknown 131 lipitor Unknown 0 Oral Active 1 [facility] 31532[facility]64 Orally Active Unknown 041 Metformin HCl MEDISPAN 46750-72 1000 mg Orally Active 1 tablet 14-01 Twice a day with meals Glucosamine MEDISPAN 46282-88 500 MG Orally Active 2 capsule 17-12 once a day with a meal Fish Oil MEDISPAN 27335-67 1000 MG Orally Active 1 capsule 71-40 Once a day Social History Social History Element Qualifiers Date Reported Tobacco Use: . Are you a: nonsmoker Jan 06, 2016 Vital Signs Date/Time: Jan 06, 2016 Weight 169 lbs Height 74 in Cardiac Monitoring Heart Rate 72 /min Blood Pressure Diastolic 76 mm Hg Blood Pressure Systolic 118 mm Hg Summary Purpose eClinicalWorks Submission
--- OUTSIDE RECORDS SUMMARY | 2019-04-09 10:34 | XMS REPORT ---
:1950 Author Organization eClinicalWorks Care Team Providers Name Role Phone Jacky Murphy Provider Role Unavailable Allergies, Adverse Reactions, Alerts Substance Reaction Event Type N.K.D.A. Info Not Available Non Drug Allergy Encounters Encounter Location Date 3w [facility] February 10, 2016 Unknown Drew Espinosa DPM February 21, 2015 poss UTI [facility] Dec 18, 2015 2w [facility] Jan 06, 2016 2wk/annual [facility] January 20, 2016 Problems Problem Type Condition ICD-9 Code Onset Dates Condition Status Assessment DM (diabetes mellitus) E11.9 Active Assessment UTI (urinary tract infection) N39.0 Active Medications Medication Code System Code Instructions Start End Date Status Dosage Date Lisinopril MEDISPAN 10863-7 10 MG Orally January Active 1 tablet 267-01 Once a day 2015 Metformin HCl MEDISPAN 66709-1 1000 mg Orally Active 1 tablet 214-01 Twice a day with meals Flax Seed Oil MEDISPAN 67004-9 1000 MG Orally Active Unknown 3131 Fish Oil MEDISPAN 33483-5 1000 MG Orally Active 1 capsule 171-40 Once a day Glucosamine MEDISPAN 36072-1 500 MG Orally Active 2 capsule 217-12 once a day with a meal Multivitamins MEDISPAN 95038-2 Orally Active Unknown 2040 True Care Test MEDISPAN 92971-9 0 In Vitro once April 15, Active as directed Strip Pack 317-50 a day 2014 Cipro MEDISPAN 69106-5 500 MG Orally January Active 1 tablet 167-01 Twice a day 2015 Social History Social History Element Qualifiers Date Reported Tobacco Use: . Are you a: nonsmoker February 10, 2016 Vital Signs Date/Time: February 10, 2016 Weight 168 lbs Height 74 in Cardiac Monitoring Heart Rate 72 /min Blood Pressure Diastolic 72 mm Hg Blood Pressure Systolic 114 mm Hg Summary Purpose eClinicalWorks Submission
--- OUTSIDE RECORDS SUMMARY | 2019-04-09 10:34 | XMS REPORT ---
:1950 Author Organization eClinicalWorks Care Team Providers Name Role Phone Jacky Murphy Provider Role Unavailable Encounters Encounter Location Date 3w [facility] February 10, 2016 Unknown [facility] February 23, 2016 3w [facility] March 02, 2016 Unknown [facility] March 25, 2016 poss UTI [facility] Dec 18, 2015 2w [facility] Jan 06, 2016 2wk/annual [facility] January 20, 2016 Unknown [facility] April 28, 2016 Unknown Drew Espinosa DPM February 21, 2015 Medications Medication Code System Code Instructions Start End Date Status Dosage Date [facility] 03518-773 1000 mg Orally Active 1 tablet 4-01 Twice a day with meals Social History Social History Element Qualifiers Date Reported Tobacco Use: . Are you a: nonsmoker March 02, 2016 Summary Purpose eClinicalWorks Submission
--- OUTSIDE RECORDS SUMMARY | 2019-04-09 10:34 | XMS REPORT ---
:1950 Author Organization eClinicalWorks Care Team Providers Name Role Phone Jacky Murphy Provider Role Unavailable Allergies, Adverse Reactions, Alerts Substance Reaction Event Type N.K.D.A. Info Not Available Non Drug Allergy Encounters Encounter Location Date 3w [facility] February 10, 2016 Unknown [facility] February 23, 2016 3w [facility] March 02, 2016 Unknown [facility] March 25, 2016 poss UTI [facility] Dec 18, 2015 MD CONSULT [facility] Jun 17, 2016 2w [facility] Jan 06, 2016 Unknown Drew Espinosa DPM February 21, 2015 2wk/annual [facility] January 20, 2016 Unknown [facility] June 02, 2016 Unknown [facility] April 28, [address] [place] [address] June 01, 2016 Problems Problem Type Condition ICD-9 Code Onset Dates Condition Status Problem Elevated lipids E78.5 Active Problem Type 2 diabetes mellitus without E11.9 Active complications Problem Essential (primary) hypertension I10 Active Assessment Elevated lipids E78.5 Active Assessment Type 2 diabetes mellitus without E11.9 Active complications Assessment Essential (primary) hypertension I10 Active Medications Medication Code System Code Instructions Start End Status Dosage Date Date Lisinopril MEDISPAN 08953-7 10 MG Orally January Active 1 tablet 267-01 Once a day 2015 True Care Test MEDISPAN 04449-4 0 In Vitro once April 15, Active as directed Strip Pack 317-50 a day 2014 Metformin HCl MEDISPAN 92926-2 1000 mg Orally Active 1 tablet with 214-01 Twice a day meals Fish Oil MEDISPAN 74996-3 1000 MG Orally Active 1 capsule 171-40 Once a day Clobetasol MEDISPAN 18603-8 0.05 % March 25Jun 23, Active 1 application Propionate 163-15 Externally 2015 2015 to affected Twice a day area Glucosamine MEDISPAN 95161-4 500 MG Orally Active 2 capsule with 217-12 once a day a meal Multivitamins MEDISPAN 61676-9 Orally Active Unknown 2040 Flax Seed Oil MEDISPAN 03956-1 1000 MG Orally Active Unknown 3131 Social History Social History Element Qualifiers Date Reported Tobacco Use: . Are you a: nonsmoker Jun 17, 2016 Vital Signs Date/Time: Jun 17, 2016 Weight 174 lbs Height 74 in Cardiac Monitoring Heart Rate 76 /min Blood Pressure Diastolic 80 mm Hg Blood Pressure Systolic 140 mm Hg Summary Purpose eClinicalWorks Submission
--- OUTSIDE RECORDS SUMMARY | 2019-04-09 10:34 | XMS REPORT ---
:1950 Author Organization eClinicalWorks Care Team Providers Name Role Phone Jacky Murphy Provider Role Unavailable Allergies, Adverse Reactions, Alerts Substance Reaction Event Type N.K.D.A. Info Not Available Non Drug Allergy Encounters Encounter Location Date 3w [facility] February 10, 2016 Unknown [facility] February 23, 2016 3w [facility] March 02, 2016 Unknown Drew Espinosa DPM February 21, 2015 poss UTI [facility] Dec 18, 2015 2w [facility] Jan 06, 2016 2wk/annual [facility] January 20, 2016 Problems Problem Type Condition ICD-9 Code Onset Dates Condition Status Assessment DM (diabetes mellitus) E11.9 Active Assessment UTI (urinary tract infection) N39.0 Active Medications Medication Code System Code Instructions Start End Status Dosage Date Date Glucosamine MEDISPAN 95891-40 500 MG Orally Active 2 capsule 17-12 once a day with a meal Flax Seed [facility] 24572-71 1000 MG Orally Active Unknown 131 Multivitamins MEDISPAN 54443-85 Orally Active Unknown 041 Lisinopril [facility] 43853-36 10 MG Orally January Active 1 tablet 67-01 Once a day 2015 Metformin HCl MEDISPAN 97097-22 1000 mg Orally Active 1 tablet 14-01 Twice a day with meals Fish Oil [facility] 23615-03 1000 MG Orally Active 1 capsule 71-40 Once a day True Care Test [facility] 72453-54 0 In Vitro once April 15, Active as directed Strip Pack 17-50 a day 2014 Social History Social History Element Qualifiers Date Reported Tobacco Use: . Are you a: nonsmoker March 02, 2016 Vital Signs Date/Time: March 02, 2016 Weight 168 lbs Height 74 in Cardiac Monitoring Heart Rate 72 /min Blood Pressure Diastolic 72 mm Hg Blood Pressure Systolic 120 mm Hg Immunizations Vaccine Administration Date tetanus March 02, 2016 Summary Purpose eClinicalWorks Submission
--- OUTSIDE RECORDS SUMMARY | 2019-04-09 10:34 | XMS REPORT ---
:1950 Author Organization eClinicalWorks Care Team Providers Name Role Phone Jacky Murphy Provider Role Unavailable Encounters Encounter Location Date 3w [facility] February 10, 2016 Unknown [facility] February 23, 2016 3w [facility] March 02, 2016 Unknown [facility] March 25, 2016 poss UTI [facility] Dec 18, 2015 2w [facility] Jan 06, 2016 2wk/annual [facility] January 20, 2016 Unknown [facility] June 02, 2016 Unknown [facility] April 28, [address] [place] [address] June 01, 2016 Unknown Drew Espinosa DPM February 21, 2015 MD CONSULT [facility] Jun 17, 2016 Unknown [facility] Aug 23, 2016 Problems Problem Type Condition ICD-9 Code Onset Dates Condition Status Problem Elevated lipids E78.5 Active Problem Type 2 diabetes mellitus without E11.9 Active complications Problem Essential (primary) hypertension I10 Active Medications Medication Code System Code Instructions Start End Date Status Dosage Date True Care Test [facility] 66834-46 0 In Vitro once April 15, Active as directed Strip Pack 17-50 a day 2014 Social History Social History Element Qualifiers Date Reported Tobacco Use: . Are you a: nonsmoker Jun 17, 2016 Summary Purpose eClinicalWorks Submission
--- OUTSIDE RECORDS SUMMARY | 2019-04-09 10:34 | XMS REPORT ---
:1950 Author Organization eClinicalWorks Care Team Providers Name Role Phone Jacky Murphy Provider Role Unavailable Allergies, Adverse Reactions, Alerts Substance Reaction Event Type N.K.D.A. Info Not Available Non Drug Allergy Encounters Encounter Location Date Unknown Drew Espinosa DPM February 21, 2015 poss UTI [facility] Dec 18, 2015 2w [facility] Jan 06, 2016 2wk/annual [facility] January 20, 2016 Problems Problem Type Condition ICD-9 Code Onset Dates Condition Status Assessment Preventative health care Z00.00 Active Assessment Hypertension I10 Active Assessment DM (diabetes mellitus) E11.9 Active Assessment Elevated lipids E78.5 Active Medications Medication Code System Code Instructions Start End Status Dosage Date Date [facility] 59648-73 0 In Vitro once April 15, Active as directed Strip Pack 17-50 a day 2014 Multivitamins MEDISPAN 46915-17 Orally Active Unknown 041 Flax Seed Oil [facility] 64404-84 1000 MG Orally Active Unknown 131 lipitor Unknown 0 Oral Active 1 tab Metformin HCl MEDISPAN 07745-28 1000 mg Orally Active 1 tablet 14-01 Twice a day with meals Lisinopril MEDISPAN 31210-32 10 MG Orally March Active 1 tablet 67-01 Once a day 2015 Glucosamine MEDISPAN 85208-76 500 MG Orally Active 2 capsule 17-12 once a day with a meal Fish Oil MEDISPAN 77850-93 1000 MG Orally Active 1 capsule 71-40 Once a day Social History Social History Element Qualifiers Date Reported Tobacco Use: . Are you a: nonsmoker January 20, 2016 Vital Signs Date/Time: January 20, 2016 Weight 169 lbs Height 74 in Cardiac Monitoring Heart Rate 72 /min Blood Pressure Diastolic 76 mm Hg Blood Pressure Systolic 140 mm Hg Summary Purpose eClinicalWorks Submission
--- OUTSIDE RECORDS SUMMARY | 2019-04-09 10:34 | XMS REPORT ---
:1950 Author Organization eClinicalWorks Care Team Providers Name Role Phone Jacky Murphy Provider Role Unavailable Encounters Encounter Location Date 3w [facility] February 10, 2016 Unknown [facility] February 23, 2016 Unknown Drew Espinosa [facility] February 21, 2015 poss UTI [facility] Dec 18, 2015 2w [facility] Jan 06, 2016 2wk/annual [facility] January 20, 2016 Problems Problem Type Condition ICD-9 Code Onset Dates Condition Status Assessment Preventative health care Z00.00 Active Assessment Hypertension I10 Active Assessment DM (diabetes mellitus) E11.9 Active Assessment Hyperlipidemia E78.5 Active Social History Social History Element Qualifiers Date Reported Tobacco Use: . Are you a: nonsmoker February 10, 2016 Summary Purpose eClinicalWorks Submission
--- OUTSIDE RECORDS SUMMARY | 2019-04-09 10:34 | XMS REPORT ---
:1950 Author Organization eClinicalWorks Care Team Providers Name Role Phone Jacky Murphy Provider Role Unavailable Encounters Encounter Location Date 3w [facility] February 10, 2016 Unknown [facility] February 23, 2016 3w [facility] March 02, 2016 Unknown [facility] March 25, 2016 poss UTI [facility] Dec 18, 2015 2w [facility] Jan 06, 2016 2wk/annual [facility] January 20, 2016 Unknown Drew Espinosa DPM February 21, 2015 Medications Medication Code System Code Instructions Start End Status Dosage Date Date Clobetasol MEDISPAN 57880-09 0.05 % March 25Jun 23, Active 1 application Propionate 63-15 Externally 2015 2015 to affected Twice a day area Social History Social History Element Qualifiers Date Reported Tobacco Use: . Are you a: nonsmoker March 02, 2016 Summary Purpose eClinicalWorks Submission
--- OUTSIDE RECORDS SUMMARY | 2019-04-09 10:35 | XMS REPORT ---
:1950 Author Organization eClinicalWorks Care Team Providers Name Role Phone Jacky Murphy Provider Role Unavailable Allergies, Adverse Reactions, Alerts Substance Reaction Event Type N.K.D.A. Info Not Available Non Drug Allergy Encounters Encounter Location Date 3w [facility] February 10, 2016 Unknown [facility] February 23, 2016 3w [facility] March 02, 2016 Unknown [facility] March 25, 2016 poss UTI [facility] Dec 18, 2015 2w [facility] Jan 06, 2016 2wk/annual [facility] January 20, 2016 Unknown [facility] June 02, 2016 Unknown [facility] April 28, 2016 3m [facility] June 01, 2016 Unknown [facility] February 21, 2015 Unknown [facility] Sep 01, 2016 3 months f/u and flu vacc [facility] Sep 01, 2016 MD CONSULT [facility] Jun 17, 2016 Unknown [facility] Aug 23, 2016 Problems Problem Type Condition [...] Instructions Start End Status Dosage Date Date Metformin HCl [facility] 33614-10 1000 mg Orally Active 1 tablet 14-01 Twice a day with meals Glucosamine MEDIAN 51937-93 500 MG Orally Active 2 capsule 17-12 once a day with a meal True Care Test MEDISPAN 45003-33 0 In Vitro once April 15, Active as directed Strip Pack 17-50 a day 2014 Lisinopril MEDISPAN 95792-87 10 MG Orally January Active 1 tablet 67-01 Once a day 2015 Flax Seed [facility] 97717-54 1000 MG Orally Active Unknown 131 Multivitamins [facility] 14940-92 Orally Active Unknown 041 Fish Oil [facility] 98908-07 1000 MG Orally Active 1 capsule 71-40 Once a day Social History Social History Element Qualifiers Date Reported Tobacco Use: . Are you a: nonsmoker Sep 01, 2016 Vital Signs Date/Time: Sep 01, 2016 Weight 169 lbs Height 74 in Cardiac Monitoring Heart Rate 76 /min Blood Pressure Diastolic 72 mm Hg Blood Pressure Systolic 122 mm Hg Immunizations Vaccine Administration Date Influenza Sep 01, 2016 Summary Purpose eClinicalWorks Submission
--- OUTSIDE RECORDS SUMMARY | 2019-04-09 10:35 | XMS REPORT ---
:1950 Author Organization eClinicalWorks Care Team Providers Name Role Phone Jacky Murphy Provider Role Unavailable Encounters Encounter Location Date 3w [facility] February 10, 2016 Unknown [facility] February 23, 2016 3w [facility] March 02, 2016 Unknown [facility] March 25, 2016 poss UTI [facility] Dec 18, 2015 2w [facility] Jan 06, 2016 2wk/annual [facility] January 20, 2016 Unknown [facility] June 02, 2016 Unknown [facility] April 28, [address] [place] [address] [facility] June 01, 2016 Unknown [facility] January 17, 2017 Unknown Drew Espinosa D[facility] February 21, 2015 Unknown [facility] Oct 12, 2016 Unknown [facility] January 14, 2017 Unknown [facility] Sep 01, 2016 3 months f/u and flu vacc [facility] Sep 01, 2016 MD CONSULT [facility] Jun 17, 2016 Unknown [facility] Aug 23, 2016 Problems Problem Type Condition ICD-9 Code Onset Dates Condition Status Problem Elevated lipids E78.5 Active Problem Type 2 diabetes mellitus without E11.9 Active complications Problem Essential (primary) hypertension I10 Active Medications Medication Code System Code Instructions Start Date End Date Status Dosage Lisinopril MEDISPAN [address] 10 MG Orally Once January 19, Active 1 tablet -01 a day 2016 Social History Social History Element Qualifiers Date Reported Tobacco Use: . Are you a: nonsmoker Dec 07, 2016 Summary Purpose eClinicalWorks Submission
--- OUTSIDE RECORDS SUMMARY | 2019-04-09 10:35 | XMS REPORT ---
:1950 Author Organization eClinicalWorks Care Team Providers Name Role Phone Jacky Murphy Provider Role Unavailable Encounters Encounter Location Date 3w [facility] February 10, 2016 Unknown [facility] February 23, 2016 3w [facility] March 02, 2016 Unknown [facility] March 25, 2016 poss UTI [facility] Dec 18, 2015 2w [facility] Jan 06, 2016 2wk/annual [facility] January 20, 2016 Unknown [facility] June 02, 2016 Unknown [facility] April 28, [address] [place] [address] June 01, 2016 Unknown [facility] Sep 01, 2016 Unknown Drew Espinosa DPM February 21, 2015 MD CONSULT [facility] Jun 17, 2016 Unknown [facility] Aug 23, 2016 Problems Problem Type Condition ICD-9 Code Onset Dates Condition Status Problem Elevated lipids E78.5 Active Problem Type 2 diabetes mellitus without E11.9 Active complications Problem Essential (primary) hypertension I10 Active Medications Medication Code System Code Instructions Start End Date Status Dosage Date Metformin [facility] 60607-377 1000 mg Orally Active 1 tablet 4-01 Twice a day with meals Social History Social History Element Qualifiers Date Reported Tobacco Use: . Are you a: nonsmoker Sep 01, 2016 Immunizations Vaccine Administration Date Influenza Sep 01, 2016 Summary Purpose eClinicalWorks Submission
--- OUTSIDE RECORDS SUMMARY | 2019-04-09 10:35 | XMS REPORT ---
:1950 Author Organization eClinicalWorks Care Team Providers Name Role Phone KatherineJacky vasquez Provider Role Unavailable Allergies No Known Allergies Problems Problem Type Condition Code Onset Dates Condition Status Problem Elevated lipids E78.5 Active Problem Type 2 diabetes mellitus without E11.9 Active complications Problem Essential (primary) hypertension I10 Active Medications Medication Code System Code Instructions Start Date End Date Status Dosage Lipitor [facility] [address] 20 MG Orally Once March 09, Active 1 tablet -23 a day 2016 Results No Known Results Summary Purpose eClinicalWorks Submission
--- OUTSIDE RECORDS SUMMARY | 2019-04-09 10:35 | XMS REPORT ---
:1950 Author Organization eClinicalWorks Care Team Providers Name Role Phone Jacky Murphy Provider Role Unavailable Encounters Encounter Location Date 3w [facility] February 10, 2016 Unknown [facility] February 23, 2016 3w [facility] March 02, 2016 Unknown [facility] March 25, 2016 poss UTI [facility] Dec 18, 2015 2w [facility] Jan 06, 2016 2wk/annual [facility] January 20, 2016 Unknown [facility] June 02, 2016 Unknown [facility] April 28, 2016 3m [facility] June 01, 2016 Unknown [facility] January 17, 2017 Unknown [facility] January 18, 2017 Unknown [facility] Oct 12, 2016 Unknown [facility] January 14, 2017 Unknown [facility] Sep 01, 2016 3 months f/u and flu vacc [facility] Sep 01, 2016 MD CONSULT [facility] Jun 17, 2016 Unknown [facility] Aug 23, 2016 Unknown Drew Espinosa D[facility] February 21, 2015 Problems Problem Type Condition ICD-9 Code Onset Dates Condition Status Problem Elevated lipids E78.5 Active Problem Type 2 diabetes mellitus without E11.9 Active complications Problem Essential (primary) hypertension I10 Active Medications Medication Code System Code Instructions Start Date End Date Status Dosage [facility] [address] 10 MG Orally Once January 19, Active 1 tablet -01 a day 2015 Social History Social History Element Qualifiers Date Reported Tobacco Use: . Are you a: nonsmoker Dec 07, 2016 Summary Purpose eClinicalWorks Submission
--- OUTSIDE RECORDS SUMMARY | 2019-04-09 10:35 | XMS REPORT ---
:1950 Author Organization eClinicalWorks Care Team Providers Name Role Phone Jacky Murphy Provider Role Unavailable Encounters Encounter Location Date 3w [facility] February 10, 2016 Unknown [facility] February 23, 2016 3w [facility] March 02, 2016 Unknown [facility] March 25, 2016 poss UTI [facility] Dec 18, 2015 2w [facility] Jan 06, 2016 2wk/annual [facility] January 20, 2016 Unknown [facility] June 02, 2016 Unknown [facility] April 28, [address] [place] [address] [facility] June 01, 2016 Unknown Drew Espinosa DPM February 21, 2015 Unknown [facility] Oct 12, 2016 Unknown [facility] January 14, 2017 Unknown [facility] Sep 01, 2016 3 months f/u and flu vacc [facility] Sep 01, 2016 MD CONSULT [facility] Jun 17, 2016 Unknown [facility] Aug 23, 2016 Problems Problem Type Condition ICD-9 Code Onset Dates Condition Status Problem Elevated lipids E78.5 Active Problem Type 2 diabetes mellitus without E11.9 Active complications Problem Essential (primary) hypertension I10 Active Medications Medication Code System Code Instructions Start Date End Date Status Dosage Lisinopril MEDISPAN [address] 10 MG Orally Once January 19, Active 1 tablet -01 a day 2015 Social History Social History Element Qualifiers Date Reported Tobacco Use: . Are you a: nonsmoker Dec 07, 2016 Summary Purpose eClinicalWorks Submission
--- OUTSIDE RECORDS SUMMARY | 2019-04-09 10:35 | XMS REPORT ---
:1950 Author Organization eClinicalWorks Care Team Providers Name Role Phone Jacky Murphy Provider Role Unavailable Encounters Encounter Location Date 3w [facility] February 10, 2016 Unknown [facility] February 23, 2016 3w [facility] March 02, 2016 Unknown [facility] March 25, 2016 poss UTI [facility] Dec 18, 2015 2w [facility] Jan 06, 2016 2wk/annual [facility] January 20, 2016 Unknown [facility] June 02, 2016 Unknown [facility] April 28, [address] [place] [address] June 01, 2016 Unknown [facility] Oct 12, 2016 Unknown [facility] February 21, 2015 Unknown [facility] Sep 01, 2016 3 months f/u and flu vacc [facility] Sep 01, 2016 MD CONSULT [facility] Jun 17, 2016 Unknown [facility] Aug 23, 2016 Problems Problem Type Condition ICD-9 Code Onset Dates Condition Status Problem Elevated lipids E78.5 Active Problem Type 2 diabetes mellitus without E11.9 Active complications Problem Essential (primary) hypertension I10 Active Medications Medication Code System Code Instructions Start End Date Status Dosage Date Metformin HCl MEDISPAN 95722-797 1000 MG Orally Active 1 tablet 4-01 Twice a day with meals Social History Social History Element Qualifiers Date Reported Tobacco Use: . Are you a: nonsmoker Oct 05, 2016 Summary Purpose eClinicalWorks Submission
--- NOTE | 2019-04-09 11:22 | EDPHYS ---
Physician Documentation [facility] Name: Bennie Thompson Age: 68 yrs Sex: Male : 1950 Arrival Date: 04/09/2019 Time: 10:31 Bed 5 Private MD: Unknown, Unknown ED Physician Lewis Mcgowan HPI: 04/09 11:04 This 68 yrs old Male presents to ER via Ambulatory with complaints of shy Laceration To Hand. 11:04 The patient has a laceration related to: falling from a standing position. The shy laceration(s) is(are) located on the medial aspect of left hand. Onset: The symptoms/episode began/occurred just prior to arrival. Associated signs and symptoms: The patient has no apparent associated signs or symptoms. The patient has not experienced similar symptoms in the past. Historical: - Allergies: 10:41 No Known Allergies; sv - PMHx: 10:41 Diabetes - NIDDM; sv - PSHx: 10:41 None; sv - Immunization history:: Adult Immunizations up to date. - Social history:: Smoking status: Patient/guardian denies using tobacco. - Family history:: not pertinent. - Ebola Screening: : No symptoms or risks identified at this time. ROS: 11:04 Constitutional: Negative for fever, chills, and weight loss, Eyes: Negative for injury, shy pain, redness, and discharge, ENT: Negative for injury, pain, and discharge, Neck: Negative for injury, pain, and swelling, Cardiovascular: Negative for chest pain, palpitations, and edema, Respiratory: Negative for shortness of breath, cough, wheezing, and pleuritic chest pain, Abdomen/GI: Negative for abdominal pain, nausea, vomiting, diarrhea, and constipation, Back: Negative for injury and pain, : Negative for injury, bleeding, discharge, and swelling, Skin: Negative for injury, rash, and discoloration, Neuro: Negative for headache, weakness, numbness, tingling, and seizure, Psych: Negative for depression, anxiety, suicide ideation, homicidal ideation, and hallucinations, Allergy/Immunology: Negative for hives, rash, and allergies, Endocrine: Negative for neck swelling, polydipsia, polyuria, polyphagia, and marked weight changes, Hematologic/Lymphatic: Negative for swollen nodes, abnormal bleeding, and unusual bruising. 11:04 MS/extremity: Positive for decreased range of motion, laceration, pain, swelling, tenderness, of the left hand. Exam: 11:04 Constitutional: This is a well developed, well nourished patient who is awake, alert, shy and in no acute distress. Head/Face: Normocephalic, atraumatic. Eyes: Pupils equal round and reactive to light, extra-ocular motions intact. Lids and lashes normal. Conjunctiva and sclera are non-icteric and not injected. Cornea within normal limits. Periorbital areas with no swelling, redness, or edema. ENT: Nares patent. No nasal discharge, no septal abnormalities noted. Tympanic membranes are normal and external auditory canals are clear. Oropharynx with no redness, swelling, or masses, exudates, or evidence of obstruction, uvula midline. Mucous membranes moist. Neck: Trachea midline, no thyromegaly or masses palpated, and no cervical lymphadenopathy. Supple, full range of motion without nuchal rigidity, or vertebral point tenderness. No Meningismus. Chest/axilla: Normal chest wall appearance and motion. Nontender with no deformity. No lesions are appreciated. Cardiovascular: Regular rate and rhythm with a normal S1 and S2. No gallops, murmurs, or rubs. Normal PMI, no JVD. No pulse deficits. Respiratory: Lungs have equal breath sounds bilaterally, clear to auscultation and percussion. No rales, rhonchi or wheezes noted. No increased work of breathing, no retractions or nasal flaring. Abdomen/GI: Soft, non-tender, with normal bowel sounds. No distension or tympany. No guarding or rebound. No evidence of tenderness throughout. Back: No spinal tenderness. No costovertebral tenderness. Full range of motion. Neuro: Awake and alert, GCS 15, oriented to person, place, time, and situation. Cranial nerves II-XII grossly intact. Motor strength 5/5 in all extremities. Sensory grossly intact. Cerebellar exam normal. Normal gait. Psych: Awake, alert, with orientation to person, place and time. Behavior, mood, and affect are within normal limits. 11:04 Musculoskeletal/extremity: Extremities: ROM: full passive range of motion, limited active range of motion, Circulation is intact in all extremities. Compartment Syndrome exam of affected extremity: is normal. Vital Signs: 10:41 BP 132 / 71; Pulse 65; Resp 16; Temp 98.2; Pulse Ox 97% ; Weight 74.84 kg; Height 6 ft. sv 2 in. (187.96 cm); Pain 0/10; 10:41 Body Mass Index 21.18 (74.84 kg, 187.96 cm) sv Laceration: 12:46 Wound Repair of 4cm ( 1.6in ) subcutaneous laceration to medial aspect of left hand. shy Irregularly shaped.. Skin/tissue flap noted.. Distal neuro/vascular/tendon intact. Anesthesia: Local anesthetic administered with 10 mls of 1% lidocaine. Wound prep: Moderate cleansing with betadine by al, Wound debrided, Wound explored, Copious irrigation. Skin closed with 10 5-0 Prolene using vertical mattress sutures and sterile technique. Dressed with Neosporin, pressure dressing, non-adherent dressing. Patient tolerated well. MDM: 11:03 Patient medically screened. [facility] 11:04 Data reviewed: vital signs, nurses notes, radiologic studies, plain films. [facility] 04/09 11:04 Order name: Hand Left 2 View XRAY [facility] 04/09 11:04 Order name: Prolene, Sutures; Complete Time: 12:43 [facility] 04/09 11:04 Order name: Dressing - Wound; Complete Time: 11:33 [facility] 04/09 11:04 Order name: Gloves, Sterile; Complete Time: 11:33 [facility] 04/09 11:04 Order name: Setup Suture Tray; Complete Time: 11:33 [facility] Administered Medications: 11:32 Drug: KeFLEX 500 mg Route: PO; hb 12:30 Follow up: Response: No adverse reaction hb 12:32 Drug: Lidocaine-Epinephrine -1%: (1:100,000) 10 ml {Note: by Dr. Mcgowan.} Volume: 20 hb ml; Route: Infiltration; 13:06 Follow up: Response: No adverse reaction hb Disposition: 04/09/19 11:22 Discharged to Home. Impression: Type 2 diabetes mellitus, Laceration without foreign body of left hand. - Condition is Stable. - Discharge Instructions: Type 2 Diabetes Mellitus, Diagnosis, Adult, Laceration Care, Adult, Laceration Care, Adult, [id number], Type 2 Diabetes Mellitus, Diagnosis, Adult, [id number]. - Prescriptions for Keflex 500 mg Oral Capsule - take 1 capsule by ORAL route every 6 hours for 10 days; 40 capsule. Tylenol- Codeine #3 300-30 mg Oral Tablet - take 2 tablet by ORAL route every 6 hours As needed; 30 tablet. - Medication Reconciliation Form, Thank You Letter, Antibiotic Education, Prescription Opioid Use form. - Follow up: Private Physician; When: 2 - 3 days; Reason: Recheck today's complaints, Continuance of care, Re-evaluation by your physician. Follow up: Lenny Lucero; When: 2 - 3 days; Reason: Recheck today's complaints, Re-evaluation by your physician. - Problem is new. - Symptoms have improved. Signatures: Dispatcher [employer] EDRenetta Perea RN RN sv Anderson, Corey, MD MD cha Baxter, Heather, RN RN hb Corrections: (The following items were deleted from the chart) 13:08 11:22 04/09/2019 11:22 Discharged to Home. Impression: Type 2 diabetes mellitus; hb Laceration without foreign body of left hand. Condition is Stable. Discharge Instructions: Type 2 Diabetes Mellitus, Diagnosis, Adult, Laceration Care, Adult, Laceration Care, Adult, [id number], Type 2 Diabetes Mellitus, Diagnosis, Adult, [id number]. Prescriptions for Keflex 500 mg Oral Capsule - take 1 capsule by ORAL route every 6 hours for 10 days; 40 capsule, Tylenol-Codeine #3 300-30 mg Oral Tablet - take 2 tablet by ORAL route every 6 hours As needed; 30 tablet. and Forms are Medication Reconciliation Form, Thank You Letter, Antibiotic Education, Prescription Opioid Use. Follow up: Private Physician; When: 2 - 3 days; Reason: Recheck today's complaints, Continuance of care, Re-evaluation by your physician. Follow up: Lenny Lucero; When: 2 - 3 days; Reason: Recheck today's complaints, Re-evaluation by your physician. Problem is new. Symptoms have improved. shy
--- NOTE | 2019-04-09 11:22 | ER ---
Nurse's Notes [facility] Name: Bennie Thompson Age: 68 yrs Sex: Male : 1950 Arrival Date: 04/09/2019 Time: 10:31 Bed 5 Private MD: Unknown, Unknown Diagnosis: Type 2 diabetes mellitus;Laceration without foreign body of left hand Presentation: 04/09 10:40 Presenting complaint: Patient states: left hand laceration after tripping on some bleachers today. Transition of care: patient was not received from another setting of care. Complicating Factors: The patient fell landing on an outstretched hand. Onset of symptoms was April 09, 2019. Initial Sepsis Screen: Does the patient meet any 2 criteria? No. Patient's initial sepsis screen is negative. Does the patient have a suspected source of infection? No. Patient's initial sepsis screen is negative. Care prior to arrival: None. 10:40 Method Of Arrival: Ambulatory sv 10:40 Acuity: MISTY 3 sv 11:15 Risk Assessment: Do you want to hurt yourself or someone else? Patient reports no hb desire to harm self or others. Triage Assessment: 10:40 General: Appears in no apparent distress. uncomfortable, well developed, Behavior is sv calm, cooperative, appropriate for age. Pain: Denies pain. Neuro: Level of Consciousness is awake, alert, obeys commands, Oriented to person, place, time, situation, Gait is steady. Respiratory: Respiratory effort is even, unlabored, Respiratory pattern is regular, symmetrical. Historical: - Allergies: 10:41 No Known Allergies; sv - PMHx: 10:41 Diabetes - NIDDM; sv - PSHx: 10:41 None; sv - Immunization history:: Adult Immunizations up to date. - Social history:: Smoking status: Patient/guardian denies using tobacco. - Family history:: not pertinent. - Ebola Screening: : No symptoms or risks identified at this time. Screenin:48 Abuse screen: Denies threats or abuse. Denies injuries from another. Nutritional hb screening: No deficits noted. Tuberculosis screening: No symptoms or risk factors identified. Fall Risk None identified. Assessment: 11:25 Reassessment: Discharge ordered, xrays not yet taken, laceration repair pending at this hb time. 11:30 General: Appears in no apparent distress. Behavior is calm, cooperative. Pain: Pain hb currently is 2 out of 10 on a pain scale. Neuro: Level of Consciousness is awake, alert, obeys commands, Oriented to person, place, time, situation. Cardiovascular: Capillary refill < 3 seconds Patient's skin is warm and dry. Respiratory: Airway is patent Respiratory effort is even, unlabored, Respiratory pattern is regular, symmetrical. GI: No signs and/or symptoms were reported involving the gastrointestinal system. : No signs and/or symptoms were reported regarding the genitourinary system. EENT: No signs and/or symptoms were reported regarding the EENT system. Derm: Skin is healthy with good turgor. Musculoskeletal: No signs and/or symptoms reported regarding the musculoskeletal system. Injury Description: Laceration sustained to medial aspect of left hand is 2.6 to 7.5 cm long, bleeding moderately, was sustained 30-60 minutes ago. 12:30 Reassessment: Patient appears in no apparent distress at this time. Patient and/or hb family updated on plan of care and expected duration. Pain level reassessed. Patient is alert, oriented x 3, equal unlabored respirations, skin warm/dry/pink. Vital Signs: 10:41 BP 132 / 71; Pulse 65; Resp 16; Temp 98.2; Pulse Ox 97% ; Weight 74.84 kg; Height 6 ft. sv 2 in. (187.96 cm); Pain 0/10; 10:41 Body Mass Index 21.18 (74.84 kg, 187.96 cm) sv ED Course: 10:31 Patient arrived in ED. ag5 10:31 Unknown, Unknown is Private Physician. ag5 10:41 Triage completed. sv 10:42 Arm band placed on. sv 11:03 Lewis Mcgowan MD is Attending Physician. shy 11:13 Debra Delgadillo, PRANAV is Primary Nurse. hb 11:22 Lenny Lucero MD is Referral Physician. shy 11:27 Hand Left 2 View XRAY In Process Unspecified. EDMS 11:49 Patient has correct armband on for positive identification. Bed in low position. Call hb light in reach. Side rails up X 1. 13:00 Assist provider with laceration repair on medial aspect of left hand that was between hb 7.6 to 12.5 cm using sutures. Set up tray. Performed by Lewis Mcgowan MD. 13:07 Patient did not have IV access during this emergency room visit. hb Administered Medications: 11:32 Drug: KeFLEX 500 mg Route: PO; hb 12:30 Follow up: Response: No adverse reaction hb 12:32 Drug: Lidocaine-Epinephrine -1%: (1:100,000) 10 ml {Note: by Dr. Mcgowan.} Volume: 20 hb ml; Route: Infiltration; 13:06 Follow up: Response: No adverse reaction hb Outcome: 11:22 Discharge ordered by MD. begum 13:07 Discharged to home ambulatory, with significant other. hb 13:07 Condition: stable 13:07 Discharge instructions given to patient, significant other, Instructed on discharge instructions, follow up and referral plans. medication usage, wound care, Demonstrated understanding of instructions, follow-up care, medications, wound care, Prescriptions given X 2. 13:08 Patient left the ED. hb Signatures: Dispatcher [employer] Renetta Lu RN RN sv Anderson, Corey, MD MD cha Baxter, Heather, RN RN Lor Emery ag5
--- NOTE | 2019-04-09 11:40 | RAD REPORT ---
EXAM DESCRIPTION: RAD - Hand Left 2 View - 04/09/2019 11:26 am CLINICAL HISTORY: Left hand pain status post injury FINDINGS: No fracture or dislocation is seen. A limited two-view series was obtained
[2019-04-09] MEDS ORDERED: LIDOCAINE 1% 20 ML MDV ONE (11:45)
[2019-04-09] MEDS ORDERED: CEPHALEXIN 250 MG CAP ONE (11:45)
== END 2019-04-09 13:08 | disposition home or self-care (01) ==
LOC: ER 10:29
PROC: 0JQK0ZZ Repair Left Hand Subcutaneous Tissue and Fascia, Open Approach (ICD-10-PCS; principal; 2019-04-09)
DX: S61.412A Laceration without foreign body of left hand, initial encounter (principal); E11.9 Type 2 diabetes mellitus without complications; W19.XXXA Unspecified fall, initial encounter; Y93.9 Activity, unspecified; Y92.9 Unspecified place or not applicable
CPT/HCPCS: 99284